=== PATIENT | male | born 1950 | race Caucasian/White ===

== ENCOUNTER 2021-05-20 14:12 | Outpatient (CLI) | payer MEDICARE, SELFPAY ==
--- NOTE | 2021-05-20 15:00 | ECG_ITS ---
Measurements Intervals [place] Rate: 57 P: 10 AL: 204 QRS: -19 QRSD: 94 T: 14 QT: 415 QTc: 406 Interpretive Statements SINUS BRADYCARDIA BORDERLINE AV CONDUCTION DELAY INCOMPLETE RIGHT BUNDLE BRANCH BLOCK BORDERLINE T WAVE ABNORMALITY- ANTERIOR LEADS BASELINE ARTIFACT- I, II, III, AVR, AVL, AVF, V1-V6 BORDERLINE ECG Electronically Signed On 05-20-2021 16:03:03 QUALITY TECH by Joaquin Calvillo D.O.
[2021-05-20 15:14] LABS: Partial Thromboplastin Time 34.5 SECONDS (22.3-36.8); Prothrombin Time 29.9 Seconds (11.1-14.7)
[2021-05-20 15:18] LABS: Anion Gap 7 mmol/L (8-16); Blood Urea Nitrogen 30 mg/dL (9-20); Calcium 9.3 mg/dL (8.4-10.2); Carbon Dioxide 27 mmol/L (22-30); Chloride 105 mmol/L (98-107); Estimated Glomerular Filt Rate 38; Glucose 156 mg/dL (65-110); Potassium 4.2 mmol/L (3.4-5.0); Sodium 139 mmol/L (137-145)
== END 2021-05-20 14:13 | disposition home or self-care (01) ==
LOC: ANHSURGERY 14:18
PROVIDERS: Anesthesiology; PCP Family Medicine; Visit Provider Urology
DX: Z01.818 Encounter for other preprocedural examination (principal); R97.20 Elevated prostate specific antigen [PSA]; E11.9 Type 2 diabetes mellitus without complications; I10 Essential (primary) hypertension; Z79.01 Long term (current) use of anticoagulants
CPT/HCPCS: 36415; 80048; 85610; 85730; 87086; 93005

== ENCOUNTER 2021-05-26 09:56 | Outpatient (CLI) | payer MEDICARE, SELFPAY ==
--- NOTE | ~2021-05-26 | US_ITS ---
EXAMINATION: US renal BI EXAM DATE: 05/26/2021 10:22 INDICATION: Elevated Prostate Specific Antigen TECHNIQUE: Multiple grayscale and Doppler images of the kidneys were obtained (by a technologist who performed the scan) and subsequently reviewed. There is no prior study for comparison. FINDINGS: There is mild bilateral renal cortical thinning. Right kidney: There is normal contour and echogenicity. It measures 11.0 x 4.3 x 5.1 centimeters. T here are no focal renal lesions identified. There is no hydronephrosis. Left kidney: There is normal contour and echogenicity. It measures 12.2 x 3.8 x 5.4 centimeters. Th ere are no focal renal lesions identified. There is no hydronephrosis. Bladder unremarkable. IMPRESSION: 1. Sonographically unremarkable kidneys. Reviewed, dictated and finalized at location B. [facility] TACK[facility]
== END 2021-05-26 09:57 | disposition home or self-care (01) ==
PROVIDERS: PCP Family Medicine; Visit Provider Urology
DX: R97.20 Elevated prostate specific antigen [PSA] (principal)
CPT/HCPCS: 76775

== ENCOUNTER 2021-05-27 01:12 | Day surgery (SDC) | payer MEDICARE, SELFPAY ==
[2021-05-16 13:28] VITALS: BMI 25.7
--- NOTE | 2021-05-16 13:38 | PC.NURSE ---
Report to the Outpatient Waiting Room, entrance under the green pavilion located off [facility], at time __1130 on date __05/27/21 . OR Time: _1329 . - You and your visitor will be asked a series of questions to screen for COVID 19 for your protection. - A mask is required within the hospital. - NO VISITORS ALLOWED AT THIS TIME Preoperative COVID Testing Requirements: No COVID Test needed if: (proof is required; if not received patient will have Rapid Test prior to entry) - Patient has received COVID Vaccine at least 14 days prior to procedure date or - Patient has positive COVID test result within last 90 days of surgery date. COVID Test needed if above criteria is not met If not COVID vaccinated a COVID test must be conducted within 72 hours of surgery and patient is asked to isolate self from time of testing until procedure. You will go to the [facility] for your COVID testing. The [facility] site is located at the corner of [address] [facility]. You will only be called if COVID results are positive and your surgeon may reschedule your elective surgery date. Patients may have clear liquids (water, carbonated beverages, clear teas, apple juice) until 3 hours prior to surgery with a maximum of 20 ounces. - No food from midnight until time of surgery - Infants may have breast milk until 4 hours before surgery, infant formula 6 hours prior to surgery. - Children will be allowed to drink immediately following surgery. If applicable, please bring a bottle or sippy cup to assist with drinking. Juice, water, soda, and popsicles are readily available. For infants on formula, please bring formula the day of surgery. Pacifiers are allowed. Take the following medications with a SIP of water the morning of surgery: ____METOPROLOL Medications to discontinue per physician ASPIRIN AND WARFARIN PER DR OLIVAS Date to take last dose Please no make-up, nail irish, hairspray, perfume, deodorant, or body powder the day of surgery. No jewelry (including any body piercings) or valuables the day of surgery, leave them at home. Please take a shower or bath the night before, or the morning of, surgery with an antibacterial soap. Wear comfortable, loose fitting clothing. Children are encouraged to wear pajamas. - Jewelry must be removed prior to entering the operating room. Rings and piercings that are not removed may be cut off. - The hospital will not accept responsibility for valuables. - Please leave all valuables, including medications, at home the day of surgery. If you are going home after surgery, a licensed cross country truck driver must drive you home. - NO public transportation without another adult. - We recommend that an adult stay with you for 24 hours following discharge. - We also recommend that you do not drive, make important decision, drink alcoholic beverages, or take any drugs that were not prescribed by your health care provider for at least 24 hours after your discharge time. Follow any additional instructions given to you from your surgeon. Telephone instructions given to __PATIENT AND SPOUSE KIM and asked if any additional questions and then verbalized understanding. Patient advised to call surgeon office or pre surgery nurse liaison [phone] if any additional questions.
[2021-05-27] VITALS (7 sets, daily range): BP systolic 94–136; BP diastolic 50–84; PULSE 55–61; RESP 12–16; TEMP 36.3–36.8; O2SAT 95–100
--- NOTE | 2021-05-27 11:30 | WPDHPUPDATE1 ---
History and Physical Update Update Date/Time: 05/27/21 11:30 History and Physical has been reviewed, including an updated exam of the patient. There are NO changes in the patient's condition. Risks, benefits, and alternatives have been discussed and questions answered. Patient agrees to proceed with procedure. Proceed with uronav ultrasound biopsy
--- NOTE | 2021-05-27 11:38 | WPDANESEPPF ---
Anes - Initial Pre Proc Eval Procedure: Operation Date: 05/27/21 13:30 Proposed Procedures p Trans Rectal Ultrasound Fusion Guided Prostate Biopsy - Jamir Jordan MD Date/Time: 05/27/21 11:38 Surgeon: Jamir Jordan MD Pre Op Diagnosis: elevated PSA Patient Data Age: 70 Gender: M Height: 1.83 m Weight: 86.2 kg Allergies Allergy/AdvReac Type Severity Reaction Status Date / Time No Known Allergies Allergy Verified 05/27/21 11:41 Home Medications Medication Instructions Recorded Confirmed Type aspirin [Adult Low Dose Aspirin] 81 mg PO DAILY 05/16/21 05/27/21 History chlorthalidone 25 mg PO DAILY 05/16/21 05/27/21 History dulaglutide [Trulicity] 3 mg SUBCUT WEEKLY 05/16/21 05/27/21 History glipizide 10 mg PO BID 05/16/21 05/27/21 History hydrocodone-acetaminophen 1 tablet PO PRN PRN 05/16/21 05/16/21 History losartan 100 mg PO DAILY 05/16/21 05/27/21 History metformin 1,000 mg PO DAILY 05/16/21 05/27/21 History metoprolol tartrate 25 mg PO DAILY 05/16/21 05/27/21 History omeprazole 40 mg PO DAILY 05/16/21 05/27/21 History simvastatin 40 mg PO HS 05/16/21 05/27/21 History trazodone 50 mg PO HS 05/16/21 05/27/21 History warfarin 3 mg PO 4XW 05/16/21 05/27/21 History warfarin 4 mg PO 3XW 05/16/21 05/27/21 History Patient hx anesthesia problems: none Family hx anesthesia problems: none Results Review: All pre-operative results and documents have been reviewed as part of the pre-operative evaluation. [facility] Past Medical History Medical History (Updated 05/27/21 @ 11:39 by Jorje Thompson DO) Diabetes type 2, controlled [place] filter in place History of pulmonary embolism Hyperlipidemia Hypertension PVD (peripheral vascular disease) his right carotid endarterectomy 2018 Surgical History Surgical History (Updated 05/27/21 @ 11:39 by Jorje Thompson DO) Hx of CABG x2 2001 Social History Social History Tobacco type: pipe Smoking end date: 04/19/01 Living arrangements: with family Spiritual care concerns: No Anes - Eval Final PreProcedure Day of Procedure 05/27/21 11:38 Patient weight: overweight Heart: regular rate and rhythm Lungs: clear to auscultation and normal air movement Airway: Mallampati scale class II Neurological: alert and oriented Last oral intake: >/= 8 hours ASA classification: IV Emergent: no Anesthetic plan: proceed Anesthesia type and monitoring: general LMA and standard monitoring Results Review: All pre-operative results and documents have been reviewed as part of the pre-operative evaluation. Informed Consent: The patient's anesthetic plan and its attendant risks and benefits were discussed with the patient/family/POA. Questions were solicited and answers provided to the satisfaction of the patient/family/POA.
[2021-05-27] MEDS: LACTATED RINGERS 1,000 ML 30 ML IV CONT (12:22)
--- NOTE | 2021-05-27 13:07 | W.PM.PROC2 ---
Procedure Note - Detailed Date of Procedure 05/27/21 Pre-op Diagnosis elevated PSA Post-op Diagnosis same Procedure Performed uronav us and biopsy of prostate Surgeon Jamir Jordan MD Anesthesia general Description of Procedure Patient is taken the operative suite and correctly identified. Once anesthesia was obtained was placed in decubitus position. Transrectal ultrasound was then performed. The MRI image was fused onto the ultrasound machine. Three cores were taken from the region of interest. We then took 12 additional standard cores. Patient tolerated procedure well without any complications was taken recovery stable condition. He will call for results in a week if he has not heard from us Drains No Packing No Pathology yes Complications No immediate complications Condition stable Disposition PACU
[2021-05-27 13:25] LABS: Glucose Point of Care 142 mg/dl (65-105)
[2021-05-27] MEDS: HYDROcodone/acetaminophen (*CRX) 5-325 MG TABLET 1 TAB PO (14:20)
== END 2021-05-27 15:12 | disposition home or self-care (01) ==
PROVIDERS: PCP Family Medicine; Visit Provider Urology
PROC: (CPT 55700; principal; 2021-05-27 13:30)
DX: C61 Malignant neoplasm of prostate (principal); Z79.01 Long term (current) use of anticoagulants; Z79.82 Long term (current) use of aspirin; E11.9 Type 2 diabetes mellitus without complications; Z86.711 Personal history of pulmonary embolism; I10 Essential (primary) hypertension; I73.9 Peripheral vascular disease, unspecified; Z95.1 Presence of aortocoronary bypass graft
CPT/HCPCS: 76872; 55700; 36415; 80048; 82948; 85610; 85730; 87086; 93005; A9270; G0416; J1100; J2405; J2704; J7120